=== PATIENT | female | born 1935 | race Caucasian/White ===

== ENCOUNTER 2022-12-15 10:00 | Emergency (ER) | payer BC, OTHER ==
[~2022-12-15] VITALS: Ht 162.6 cm; Wt 62.6 kg
[2022-12-15 10:36] LABS: BASOPHILS # (AUTO) 0.1 K/UL (0.0-0.2); BASOPHILS % (AUTO) 1.4 % (0.0-2.0); EOSINOPHILS # (AUTO) 0.4 K/uL (0.0-0.7); EOSINOPHILS % (AUTO) 4.4 % (0.0-7.0); HEMATOCRIT 35.7 % (31.2-41.9); HEMOGLOBIN 12.2 g/dL (10.9-14.3); LYMPHOCYTES # (AUTO) 1.5 K/uL (0.8-4.8); LYMPHOCYTES % (AUTO) 15.1 % (20.5-51.5); MEAN CORPUSCULAR HEMOGLOBIN 30.6 uug (24.7-32.8); MEAN CORPUSCULAR HGB CONC 34 g/dL (32.3-35.6); MEAN CORPUSCULAR VOLUME 89.6 fL (75.5-95.3); MONOCYTES # (AUTO) 0.6 K/uL (0.1-1.30); MONOCYTES % (AUTO) 6.1 % (0.0-11.0); NEUTROPHILS # (AUTO) 7.1 K/uL (1.8-8.9); PLATELET COUNT (AUTO) 185 K/uL (179-408); RED BLOOD CELL COUNT(AUTO) 3.99 MIL/uL (3.63-4.92); RED CELL DISTRIBUTION WIDTH 14.7 % (12.3-17.7); WHITE BLOOD COUNT (AUTO) 9.7 K/uL (3.8-11.8)
[2022-12-15 10:55] LABS: AMMONIA < 10 umol/L (11-32); ETHANOL < 3 MG/DL (0-10)
[2022-12-15 10:56] LABS: ALANINE AMINOTRANSFERASE 8 U/L (14-59); ALBUMIN 3.3 g/dL (3.4-5.0); ALKALINE PHOSPHATASE 72 U/L (50-136); ASPARTATE AMINOTRANSFERASE 10 U/L (15-37); BILIRUBIN,DIRECT 0.1 mg/dL (0.0-0.2); BILIRUBIN,TOTAL 0.5 mg/dL (0.2-1.0); CALCIUM 10.2 mg/dL (8.5-10.1); CARBON DIOXIDE 28 mmol/L (21-32); CHLORIDE 106 mmol/L (98-107); CREATININE 1.9 mg/dL (0.6-1.3); DIFFERENTIAL COMMENT 1; GLUCOSE 97 mg/dL (74-106); POTASSIUM 4.2 mmol/L (3.5-5.1); SODIUM SERUM 141 mmol/L (136-145); TOTAL PROTEIN, SERUM 6.8 g/dL (6.4-8.2); UREA NITROGEN, BLOOD 35 mg/dL (7-18)
[2022-12-15 10:58] LABS: ACETAMINOPHEN < 2.0 ug/mL (10-30)
[2022-12-15 11:01] LABS: THYROID STIMULATING HORMONE 1.399 mIU/mL (0.358-3.740)
[2022-12-15] MEDS ORDERED: [UNRECOGNIZED DRUG - OTHER] PO (11:09)
[2022-12-15] MEDS ORDERED: LEVO50TA PO (11:09)
[2022-12-15] MEDS ORDERED: ANAS1TAB50 PO (11:09)
[2022-12-15] MEDS ORDERED: METO50TA16 PO (11:09)
[2022-12-15] MEDS ORDERED: IRBE150T28 PO (11:09)
[2022-12-15] MEDS ORDERED: CALC0.253 PO (11:09)
[2022-12-15] MEDS ORDERED: EMPA10TA PO (11:09)
[2022-12-15] MEDS ORDERED: AMLO10TA59 PO (11:09)
[2022-12-15] MEDS ORDERED: OLAN2.5T3 PO (11:09)
[2022-12-15] MEDS ORDERED: VITA-354 PO ×2 (11:09)
[2022-12-15 11:43] LABS: *BILIRUBIN,URIN NEGATIVE (NEGATIVE); *BLOOD, URINE 1+ (NEGATIVE); *CLARITY,URINE CLEAR (CLEAR); *COLOR,URINE Other (YELLOW); *KETONES,URINE NEGATIVE (NEGATIVE); *PROTEIN,URINE 2+ (NEGATIVE); *UROBILINOGEN,URINE 0.2 E.U./dl (NORMAL); LEUKOCYTE ESTERASE ,URINE 1+ (NEGATIVE); NITRITE, URINE NEGATIVE (NEGATIVE); PH,URINE 6.5 (5.0-8.0); UGLUCOSE TRACE (NEGATIVE)
[2022-12-15] MEDS ORDERED: IV NORMAL SALINE 1000 ML BAG IV ONE (11:45)
[2022-12-15 11:58] LABS: *AMPHETAMINE, URINE NEGATIVE (NEGATIVE); *BARBITURATE, URINE NEGATIVE (NEGATIVE); *BENZODIAZEPINE, URINE NEGATIVE (NEGATIVE); *CANNABINOID, URINE NEGATIVE (NEGATIVE); *COCCAINE, URINE NEGATIVE (NEGATIVE); *OPIATE, URINE NEGATIVE (NEGATIVE); *PHENCYCLIDINE SCREEN,URINE NEGATIVE (NEGATIVE); FENTANYL, URINE NEGATIVE (NEGATIVE)
[2022-12-15 14:22] LABS: CALCIUM 9.8 mg/dL (8.5-10.1); CARBON DIOXIDE 27 mmol/L (21-32); CHLORIDE 108 mmol/L (98-107); CREATININE 1.8 mg/dL (0.6-1.3); GLUCOSE 94 mg/dL (74-106); POTASSIUM 4.2 mmol/L (3.5-5.1); SODIUM SERUM 142 mmol/L (136-145); UREA NITROGEN, BLOOD 32 mg/dL (7-18)
[2022-12-15 14:23] LABS: BACTERIA,URINE MANY /HPF (NONE SEEN); COARSE GRANULAR CASTS,URINE 0-3 /LPF; SQUAMOUS EPITHELIAL CELL,UR FEW /HPF (NONE SEEN); WBC,URINE 80-100 /HPF (0-3)
[2022-12-15] MEDS ORDERED: CEPH500C2 PO ×2 (15:00→15:14)
[2022-12-15] MEDS ORDERED: CEFTRIAXONE /D5W 50ML IVPB **ER PYXIS IV ONE (15:04)
[2022-12-15] MEDS ORDERED: CEFTRIAXONE 1 G in IV DEXTROSE 5% 50 ML IV ONE (15:15)
[2022-12-15 15:31] VITALS: BP 131/59; TEMP 97.8; O2SAT 99
[2022-12-15] MEDS ORDERED: GENT5DRO4 EACHEYE (16:20)
== END 2022-12-15 16:00 | disposition home or self-care (01) ==
LOC: ER 10:00 → EDBD 10:00 → ER 16:00
DX: S09.90XA Unspecified injury of head, initial encounter (principal); N39.0 Urinary tract infection, site not specified; R07.89 Other chest pain; Z79.2 Long term (current) use of antibiotics; Z79.899 Other long term (current) drug therapy; W18.39XA Other fall on same level, initial encounter; Y93.89 Activity, other specified; Y92.89 Other specified places as the place of occurrence of the external cause; Y99.8 Other external cause status
CPT/HCPCS: 80076; 80048 ×2; 81001; 82140; 84443; 85025; 85730; 87040 ×2; 84484 ×2; 36415; 93005; 71045; 70450; 71250; 72125; 99285; 96361; 96365; 83605; 87086; 80299; 80320; 80307; J0696; J7040; A4663; C1758; G0480